=== PATIENT | female | born 1995 | race Caucasian/White ===

== ENCOUNTER 2021-10-18 19:18 | Emergency (ER) | payer MEDICAID ==
[~2021-10-18] VITALS: Ht 170.2 cm; Wt 103.0 kg
[2021-10-18] MEDS ORDERED: ONDANSETRON PF 4 MG/2 ML VIAL. ONE (19:50)
[2021-10-18] MEDS ORDERED: ONDANSETRON PF 4 MG/2 ML VIAL. IVP ONE ×2 (20:00→22:00)
[2021-10-18] MEDS ORDERED: IV NORMAL SALINE 1,000ML 1,000 ML IV ONE (20:00)
[2021-10-18 20:22] LABS: U PREG PATIENT NEGATIVE (NEG)
[2021-10-18 20:29] LABS: CLARITY,URINE CLEAR; COLOR,URINE YELLOW; GLUCOSE,URINE NEG (NEG); NITRITE,URINE NEG (NEG); UROBILINOGEN,URINE 0.2 mg/dL (0.2 mg/dL)
[2021-10-18 20:30] LABS: BACTERIA,URINE MANY /HPF (0-FEW); SQUAMOUS EPITHELIAL CELL,UR MANY /LPF
[2021-10-18 20:33] LABS: BASO % 0 % (0-3); EOS # 0.1 x10^3/uL (0.0-0.7); EOS % 1 % (0-3); HEMOGLOBIN 11.3 g/dL (12.0-15.5); LYMPH % 12 % (24-48); MEAN CORPUSCULAR HEMOGLOBIN 27 pg (25-35); MEAN CORPUSCULAR HGB CONC 32 g/dL (31-37); MEAN CORPUSCULAR VOLUME 83 fL (79-100); MONO # 0.5 x10^3/uL (0.0-1.1); MONO % 7 % (0-9); NEUT # 6.3 x10^3uL (1.8-7.7); NEUT % 80 % (31-73); PLATELET COUNT 267 x10^3/uL (140-400); RED BLOOD COUNT 4.21 x10^6/uL (3.50-5.40); RED CELL DISTRIBUTION WIDTH 14.1 % (11.5-14.5); WHITE BLOOD COUNT 7.8 x10^3/uL (4.0-11.0)
[2021-10-18 20:41] LABS: CALCIUM 8.5 mg/dL (8.5-10.1); GFR 68.7; POTASSIUM 3.4 mmol/L (3.5-5.1)
[2021-10-18 20:46] LABS: ALBUMIN 3.7 g/dL (3.4-5.0); ALBUMIN/GLOBULIN RATIO 1.2 (1.0-1.7); TOTAL BILIRUBIN 0.4 mg/dL (0.2-1.0); TOTAL PROTEIN 6.9 g/dL (6.4-8.2)
--- NOTE | 2021-10-18 21:28 | PHYS DOC ---
Past History Past Surgical History: No Surgical History (RANJEET HESTER APRN) General Adult EDM: Chief Complaint: ABDOMINAL PAIN HPI: HPI: Patient is a 25-year-old female presents with right lower quadrant abdominal pain that radiates to right flank, nausea vomiting. Patient also reporting burning and frequency with urination. Denies fever. States symptoms started on Wednesday. Denies medical history. (RANJEET HESTER APRN) Review of Systems: Review of Systems: ROS At least 10 ROS systems have been reviewed and are negative except as documented in the HPI. General: Negative except as outlined in HPI above. Skin: Negative except as outlined in HPI above. HEENT: Negative except as outlined in HPI above. Neck: Negative except as outlined in HPI above. Respiratory: Negative except as outlined in HPI above.. Cardiovascular: Negative except as outlined in HPI above. Abdomen: Negative except as outlined in HPI above. : Negative except as outlined in HPI above. Back/MSK: Negative except as outlined in HPI above. Neuro: Negative except as outlined in HPI above. Psych: Negative except as outlined in HPI above. (RANJEET HESTER APRN) Current Medications: Current Meds: Current Medications Medications (Trade) Dose Ordered Sig/Ten Start Time Stop Time Status Last Admin Dose Admin Nitrofurantoin Macrocrystals (Macrobid) 100 mg 1X ONCE 10/18/21 21:15 10/18/21 21:16 UNV Ondansetron HCl (Zofran) 4 mg 1X ONCE 10/18/21 20:00 10/18/21 20:01 DC 10/18/21 20:01 4 MG Sodium Chloride 1,000 ml @ 1,000 mls/hr 1X ONCE 10/18/21 20:00 10/18/21 20:59 DC 10/18/21 19:59 1,000 MLS/HR (RANJEET HESTER APRN) Allergies: Allergies: Allergies Coded Allergies Type Severity Reaction Last Updated Verified No Known Drug Allergies 10/18/21 No (RANJEET HESTER APRN) Physical Exam: PE: Constitutional: Well developed, well nourished, no acute distress, non-toxic appearance. [] HENT: Normocephalic, atraumatic, bilateral external ears normal, oropharynx moist, no oral exudates, nose normal. [] Eyes: PERRLA, EOMI, conjunctiva normal, no discharge. [] Neck: Normal range of motion, no tenderness, supple, no stridor. [] Cardiovascular:Heart rate regular rhythm, no murmur [] Lungs & Thorax: Bilateral breath sounds clear to auscultation [] Abdomen: Bowel sounds normal, soft, right lower quadrant tenderness Skin: Warm, dry, no erythema, no rash. [] Back: No tenderness, right CVA tenderness. [] Extremities: No tenderness, no cyanosis, no clubbing, ROM intact, no edema. [] Neurologic: Alert and oriented X 3, normal motor function, normal sensory function, no focal deficits noted. [] Psychologic: Affect normal, judgement normal, mood normal. [] (RANJEET HESTER APRN) Current Patient Data: Labs: Laboratory Tests Test 10/18/21 18:50 10/18/21 19:37 10/18/21 19:55 POC Urine HCG, Qualitative hcg negative (Negative) Urine Collection Type Unknown Urine Color Yellow Urine Clarity Clear Urine pH 8.5 Urine Specific [place] 1.020 Urine Protein Trace (NEG-TRACE) Urine Glucose (UA) Neg mg/dL (NEG) Urine Ketones (Stick) Neg mg/dL (NEG) Urine Blood Trace (NEG) Urine Nitrite Neg (NEG) Urine Bilirubin Neg (NEG) Urine Urobilinogen Dipstick 0.2 mg/dL (0.2 mg/dL) Urine Leukocyte Esterase Trace (NEG) Urine RBC 1-2 /HPF (0-2) Urine WBC 5-10 /HPF (0-4) Urine Squamous Epithelial Cells Many /LPF Urine Bacteria Many /HPF (0-FEW) Urine Mucus Mod /LPF Urine Test Negative (NEG) White Blood Count 7.8 x10^3/uL (4.0-11.0) Red Blood Count 4.21 x10^6/uL (3.50-5.40) Hemoglobin 11.3 g/dL (12.0-15.5) L Hematocrit 35.0 % (36.0-47.0) L Mean Corpuscular Volume 83 fL (79-100) Mean Corpuscular Hemoglobin 27 pg (25-35) Mean Corpuscular Hemoglobin Concent 32 g/dL (31-37) Red Cell Distribution Width 14.1 % (11.5-14.5) Platelet Count 267 x10^3/uL (140-400) Neutrophils (%) (Auto) 80 % (31-73) H Lymphocytes (%) (Auto) 12 % (24-48) L Monocytes (%) (Auto) 7 % (0-9) Eosinophils (%) (Auto) 1 % (0-3) Basophils (%) (Auto) 0 % (0-3) Neutrophils # (Auto) 6.3 x10^3uL (1.8-7.7) Lymphocytes # (Auto) 1.0 x10^3/uL (1.0-4.8) Monocytes # (Auto) 0.5 x10^3/uL (0.0-1.1) Eosinophils # (Auto) 0.1 x10^3/uL (0.0-0.7) Basophils # (Auto) 0.0 x10^3/uL (0.0-0.2) Sodium Level 141 mmol/L (136-145) Potassium Level 3.4 mmol/L (3.5-5.1) L Chloride Level 105 mmol/L (98-107) Carbon Dioxide Level 27 mmol/L (21-32) Anion Gap 9 (6-14) Blood Urea Nitrogen 13 mg/dL (7-20) Creatinine 1.0 mg/dL (0.6-1.0) Estimated GFR (Cockcroft-Gault) 68.7 BUN/Creatinine Ratio 13 (6-20) Glucose Level 94 mg/dL (70-99) Calcium Level 8.5 mg/dL (8.5-10.1) Total Bilirubin 0.4 mg/dL (0.2-1.0) Aspartate Amino Transferase (AST) 10 U/L (15-37) L Alanine Aminotransferase (ALT) 16 U/L (14-59) Alkaline Phosphatase 72 U/L (46-116) Total Protein 6.9 g/dL (6.4-8.2) Albumin 3.7 g/dL (3.4-5.0) Albumin/Globulin Ratio 1.2 (1.0-1.7) Vital Signs: Vital Signs Date Time Temp Pulse Resp B/P (MAP) Pulse Ox O2 Delivery O2 Flow Rate FiO2 10/18/21 19:18 98.3 64 18 137/80 (99) 97 Room Air (RANJEET HESTER APRN) EKG: EKG: [] (RANJEET HESTER APRN) Radiology/Procedures: Radiology/Procedures: [] (RANJEET HESTER APRN) Heart Score: C/O Chest Pain: No Risk Factors: Risk Factors: DM, Current or recent (<one month) smoker, HTN, HLP, family history of CAD, obesity. Risk Scores: Score 0 - 3: 2.5% MACE over next 6 weeks - Discharge Home Score 4 - 6: 20.3% MACE over next 6 weeks - Admit for Clinical Observation Score 7 - 10: 72.7% MACE over next 6 weeks - Early Invasive Strategies (RANJEET HESTER APRN) Course & Med Decision Making: Course & Med Decision Making Pertinent Labs and Imaging studies reviewed. (See chart for details) [] 22-year-old female presents with right lower quadrant abdominal pain that radiates to right flank, nausea and vomiting. Symptoms started on Wednesday. Patient is also reporting dysuria and frequency. Work-up in ER consisted of labs, urinalysis, . Urine is positive for infection. Patient given Rocephin while in the ER. Sending patient home with Keflex to treat UTI. All other labs are unremarkable. CT abdomen pelvis is positive for kidney stone. Patient also sent home with Flomax and hydrocodone. Patient to return to the emergency room if she has worsening symptoms or concerns. Discussed return precautions. Increase fluids. (RANJEET HESTER APRN) Dragon Disclaimer: Dragon Disclaimer: This electronic medical record was generated, in whole or in part, using a voice recognition dictation system. (RANJEET HESTER APRN) Attending Co-Sign The patient was seen and interviewed as well as examined at the bedside. The chart was reviewed. The case was discussed. Agree with the plan of care. (MIESHA MCINTOSH DO) Departure Departure: Impression: Primary Impression: UTI (urinary tract infection) Qualified Codes: N30.00 - Acute cystitis without hematuria Additional Impression: Kidney stone on right side Disposition: HOME / SELF CARE / HOMELESS Condition: STABLE Referrals: PCP,HEMAL (PCP) Patient Instructions: Urinary Tract Infection, [id number] Additional Instructions: He was to the emergency room for right lower abdominal pain and flank pain. Urine was positive for a urinary tract infection Scripts Ondansetron (ONDANSETRON ODT) 4 Mg Tab.rapdis 1 TAB PO PRN Q6-8HRS for nausea for 7 Days, #16 TAB Prov: RANJEET HESTER APRN 10/18/21 Hydrocodone Bit/Acetaminophen (HYDROCODONE-APAP 5-325 ) 1 Each Tablet 1 TAB PO PRN Q6HRS PRN for PAIN for 3 Days, #12 TAB 0 Refills Prov: RANJEET HESTER APRN 10/18/21 Tamsulosin Hcl (FLOMAX) 0.4 Mg Cap.er.24h 1 CAP PO DAILY for kidney stone for 14 Days, #14 CAP 0 Refills Prov: RANJEET HESTER APRN 10/18/21 Cephalexin (CEPHALEXIN) 500 Mg Tablet 1 TAB PO BID for UTI for 7 Days, #14 TAB Prov: RANJEET HESTER APRN 10/18/21 Nitrofurantoin Monohyd/M-Cryst (MACROBID 100 MG CAPSULE) 100 Mg Capsule 1 CAP PO BID for UTI for 7 Days, #14 CAP 0 Refills Prov: RANJEET HESTER APRN 10/18/21 RANJEET HESTER APRN Oct 18, 2021 21:28 MIESHA MCINTOSH DO Oct 20, 2021 01:07
[2021-10-18] MEDS ORDERED: NITR100C62 PO (21:30)
[2021-10-18] MEDS ORDERED: NITROFURANTOIN MONOHYD/M-CRYST 100 MG CAPSULE. PO ONE (21:30)
--- NOTE | 2021-10-18 21:39 | RAD ---
Exam: CT abdomen and pelvis without contrast INDICATION: Abdominal pain, right lower quadrant TECHNIQUE: Sequential axial images through the abdomen and pelvis obtained without IV contrast. Sagit sammy and coronal reformatted images were reconstructed from the axial data and reviewed. Exposure: One or more of the following in the visualized dose reduction techniques were utilized for this examination: 1. Automated exposure control 2. Adjustment of the MA and/or KV according to patient size 3. Use of iterative of reconstructive technique Comparisons: None FINDINGS: Heart size is normal. No pericardial effusion. Visualized lung bases are clear. No pleural effusion. Evaluation of solid organs is limited secondary to noncontrast technique. Liver, spleen, pancreas, and adrenals are unremarkable. Gallbladder is contracted with internal galls tones. There is moderate right-sided hydronephrosis and hydroureter with a 4 mm calculus at the right ureter ovesicular junction. Nonobstructing renal calculi are noted bilaterally. Bladder is decompressed not well evaluated. Uterus is not enlarged. There is a cystic lesion at the r ight adnexa which measures 3.1 cm in long axis. Trace free fluid in the pelvis. Large and small bowel are unremarkable. Appendix is normal. No free i ntra-abdominal air or fluid. No obstruction. Abdominal aorta has normal course and caliber. No enlarged intra-abdominal lymph nodes are identified. No suspicious osseous lesions or acute fractures. IMPRESSION: 1. A 4 mm calculus at the right ureterovesicular junction causing moderate right-sided hydronephrosi s and hydroureter. 2. Nonobstructing renal calculi bilaterally. 3. Cystic lesion at the right adnexa measuring up to 3.1 cm favored represent cyst within the right ovary, incompletely characterized on CT. 4. Trace free fluid in the pelvis may be physiologic or reactive to the above process. 5. Cholelithiasis Electronically signed by: Boni Hoff MD (10/18/2021 9:37 PM) [facility]
[2021-10-18] MEDS ORDERED: IV NORMAL SALINE 50ML 50 ML ONE (21:40)
[2021-10-18] MEDS ORDERED: cefTRIAXone SODIUM 1 GM VIAL ONE (21:40)
[2021-10-18] MEDS ORDERED: TAMS0.4C97 PO (21:45)
[2021-10-18] MEDS ORDERED: HYDR-2155 PO (21:45)
[2021-10-18] MEDS ORDERED: CEPH500T PO (21:45)
[2021-10-18] MEDS ORDERED: ONDA4TAB12 PO (21:48)
[2021-10-18] MEDS ORDERED: HYDROcodone/APAP 5/325MG 1 TAB TABLET PO ONE (22:00)
[2021-10-18] MEDS ORDERED: TAMSULOSIN 0.4 MG CAP.ER.24H. PO ONE (22:00)
[2021-10-18] MEDS ORDERED: ONDANSETRON 4MG ODT 4TABLET STARTPACK. PO ONE ×2 (22:23→23:00)
[2021-10-18 23:20] VITALS: BP 152/94
== END 2021-10-18 23:20 | disposition home or self-care (01) ==
LOC: ER 19:18
DX: N30.00 Acute cystitis without hematuria (principal); N13.2 Hydronephrosis with renal and ureteral calculous obstruction
CPT/HCPCS: 36415; 74176; 80053; 81001; 81025; 83690; 85025; 87086; 96361; 96365; 96375; 96376; 99285; J0696; J2405; J7030; Q0162